=== PATIENT | female | born 1950 | race Caucasian/White ===

== ENCOUNTER 2020-09-15 14:52 | Inpatient (IN) ==
[2020-09-15] MEDS ORDERED: Isovue-370 500 ML BOTTLE IVP ONE (15:07)
[2020-09-15 15:24] LABS: Hematocrit 39.1 % (35.3-44.9); Hemoglobin 12.6 g/dL (11.5-15.4); Mean Corpuscular HGB Conc 32.2 g/dL (31.6-35.5); Mean Corpuscular Hemoglobin 32.6 pg (28.0-33.3); Mean Platelet Volume 9.3 fL (9.4-12.4); Platelet Count 222 K/mcL (140-400); Red Blood Count 3.87 M/mcL (3.82-4.97); Red Cell Distribution Width 13.4 % (11.5-14.5)
[2020-09-15 15:30] LABS: INR 1.1
[2020-09-15 15:36] LABS: Activated Partial Thrombo Time 20.8 Seconds (26.0-36.0)
[2020-09-15 15:42] LABS: Calcium 9.3 mg/dL (8.6-10.3); Potassium 4.1 mEq/L (3.5-5.1)
[2020-09-15 15:47] LABS: Troponin I 0.1 ng/mL (< 0.04)
[2020-09-15] MEDS ORDERED: Aspirin 81 MG TAB.CHEW PO STA (16:55)
[2020-09-15] MEDS ORDERED: Perflutren Lipid Microsphere 1.3 ML in 0.9 % Sodium Chloride 8.7 ML IVP PRN (18:03)
[2020-09-15] MEDS ORDERED: Naloxone 0.4 MG/ML INJ IVP PRN (18:33)
[2020-09-15] MEDS ORDERED: Dextrose Gel 15 GM/37.5 ML TUBE PO PRN ×2 (18:42)
[2020-09-15] MEDS ORDERED: *HR* Dextrose 50 % in Water (Vial) 50 ML VIAL IVP PRN (18:42)
[2020-09-15] MEDS ORDERED: D5% in Water 1,000 ML IVC PRN (18:42)
[2020-09-15] MEDS ORDERED: traZODone 50 MG TABLET PO PRN (20:20)
[2020-09-15] MEDS: Metoprolol XL (24 HR) Succ 50 MG TAB.ER.24H PO SCH (21:57)
[2020-09-15] MEDS: Ranolazine 500 MG TAB.ER.12H PO SCH (21:57)
[2020-09-15] MEDS: Insulin DETEMIR 100 UNIT/ML X5UNITS SQ SCH (21:58)
[2020-09-16] MEDS: Ranolazine 500 MG TAB.ER.12H PO SCH ×2 (08:27→19:54)
[2020-09-16] MEDS: Metoprolol XL (24 HR) Succ 50 MG TAB.ER.24H PO SCH ×2 (08:28→19:55)
[2020-09-16] MEDS: Aspirin Enteric Coated 81 MG Tablet PO SCH (08:28)
[2020-09-16] MEDS: Isosorbide MONOnitrate (24 HR) 60 MG TAB.ER.24H PO SCH (08:28)
[2020-09-16] MEDS: Insulin LISPRO 300 UNITS/3 ML VIAL SQ SCH ×3 (08:28→17:36)
[2020-09-16] MEDS ORDERED: *HR* Heparin 5,000 UNIT/ML VIAL IVP PRN ×2 (08:33)
[2020-09-16 08:52] LABS: Basophils % 0.1 %; Eosinophils # 0.1 K/mcL (0.0-0.6); Eosinophils % 1.5 %; Hematocrit 39.7 % (35.3-44.9); Hemoglobin 12.8 g/dL (11.5-15.4); Immature Granulocytes % 0.5 % (0-4); Lymphocytes # 1.3 K/mcL (0.6-4.6); Lymphocytes % 16.6 %; Mean Corpuscular HGB Conc 32.2 g/dL (31.6-35.5); Mean Corpuscular Hemoglobin 32.8 pg (28.0-33.3); Mean Corpuscular Volume 101.8 fL (83.0-100.0); Mean Platelet Volume 9.2 fL (9.4-12.4); Monocytes % 12.2 %; Neutrophils # 5.4 K/mcL (1.6-8.9); Platelet Count 226 K/mcL (140-400); Red Cell Distribution Width 13.5 % (11.5-14.5); Segmented Neutrophils % 69.1 %; White Blood Count 7.8 K/mcL (4.3-11.1)
[2020-09-16 08:56] LABS: INR 1.1
[2020-09-16 08:57] LABS: Heparin anti-factor XA UFH < 0.04 IU/mL (0.30-0.70)
[2020-09-16 08:59] LABS: Estimated Average Glucose 151 mg/dl
[2020-09-16 09:12] LABS: Calcium 9.7 mg/dL (8.6-10.3); Chol/HDL Ratio 3.8 (0-4.9); Potassium 4.3 mEq/L (3.5-5.1)
[2020-09-16] MEDS: Heparin 25,000UNIT/250ML 1/2NS 25,000 UNIT/250 ML IV.SOLN IVC SCH (09:57)
[2020-09-16] MEDS: Insulin DETEMIR 100 UNIT/ML X5UNITS SQ SCH (19:55)
[2020-09-16 21:56] LABS: Adenovirus Not Detected (Not Detect); Bordetella Pertussis Not Detected (Not Detect); Chlamydophila pneumoniae Not Detected (Not Detect); Coronavirus 229E Not Detected (Not Detect); Coronavirus HKU1 Not Detected (Not Detect); Coronavirus NL63 Not Detected (Not Detect); Coronavirus OC43 Not Detected (Not Detect); Human Metapneumovirus Not Detected (Not Detect); Human Rhinovirus/Enterovirus Not Detected (Not Detect); Influenza A Subtype 2009 H1 Not Detected (Not Detect); Influenza B Not Detected (Not Detect); Mycoplasma pneumoniae Not Detected (Not Detect); Parainfluenza Virus 1 Not Detected (Not Detect); Parainfluenza Virus 2 Not Detected (Not Detect); Parainfluenza Virus 3 Not Detected (Not Detect); Parainfluenza Virus 4 Not Detected (Not Detect); Respiratory Syncytial Virus Not Detected (Not Detect); SARS-CoV-2 Not Detected (Not Detect)
[2020-09-17] MEDS: Heparin 25,000UNIT/250ML 1/2NS 25,000 UNIT/250 ML IV.SOLN IVC SCH ×2 (01:38→18:16)
[2020-09-17 02:17] LABS: Hematocrit 34.9 % (35.3-44.9); Mean Corpuscular HGB Conc 31.2 g/dL (31.6-35.5); Mean Corpuscular Hemoglobin 31.9 pg (28.0-33.3); Mean Platelet Volume 9.8 fL (9.4-12.4); Platelet Count 226 K/mcL (140-400); Red Blood Count 3.42 M/mcL (3.82-4.97); Red Cell Distribution Width 13.2 % (11.5-14.5); White Blood Count 7.8 K/mcL (4.3-11.1)
[2020-09-17 02:18] LABS: Hemoglobin 10.9 g/dL (11.5-15.4)
[2020-09-17 02:39] LABS: Calcium 9.3 mg/dL (8.6-10.3); Potassium 4.2 mEq/L (3.5-5.1)
[2020-09-17] MEDS: Insulin LISPRO 300 UNITS/3 ML VIAL SQ SCH ×3 (07:48→16:43)
[2020-09-17] MEDS: Aspirin Enteric Coated 81 MG Tablet PO SCH (07:48)
[2020-09-17] MEDS: Ranolazine 500 MG TAB.ER.12H PO SCH ×2 (07:49→21:28)
[2020-09-17] MEDS: Isosorbide MONOnitrate (24 HR) 60 MG TAB.ER.24H PO SCH (07:49)
[2020-09-17] MEDS: Metoprolol XL (24 HR) Succ 50 MG TAB.ER.24H PO SCH ×2 (07:49→21:28)
[2020-09-17] MEDS ORDERED: 0.9 % Sodium Chloride 500 ML IVC ONE (09:34)
[2020-09-17] MEDS ORDERED: Lidocaine Viscous Oral Soln 15 ML SOLUTION MM PRN (09:34)
[2020-09-17] MEDS: *HR* Midazolam HCl 5 MG/5 ML VIAL IVP PRN ×2 (10:05→10:10)
[2020-09-17] MEDS: *HR* FentaNYL (PF) 100 MCG/2 ML VIAL IVP PRN ×2 (10:05→10:10)
[2020-09-17] MEDS: Miconazole 2% ointment 141 APPL/141 GM TUBE TP SCH (13:00)
[2020-09-17 14:16] LABS: Hematocrit 38.5 % (35.3-44.9); Hemoglobin 11.9 g/dL (11.5-15.4)
[2020-09-17] MEDS: 0.9 % Sodium Chloride 1,000 ML IVC SCH ×2 (16:41→23:58)
[2020-09-17] MEDS: *HR* Heparin 5,000 UNIT/ML VIAL SQ SCH (18:16)
[2020-09-17] MEDS: Insulin DETEMIR 100 UNIT/ML X5UNITS SQ SCH (21:29)
[2020-09-18] MEDS: *HR* Heparin 5,000 UNIT/ML VIAL SQ SCH ×2 (05:27→16:14)
[2020-09-18 07:33] LABS: Calcium 8.5 mg/dL (8.6-10.3); Potassium 4.5 mEq/L (3.5-5.1)
[2020-09-18 07:35] LABS: Hematocrit 35.5 % (35.3-44.9); Hemoglobin 11.1 g/dL (11.5-15.4); Mean Corpuscular HGB Conc 31.3 g/dL (31.6-35.5); Mean Corpuscular Hemoglobin 32.5 pg (28.0-33.3); Mean Corpuscular Volume 103.8 fL (83.0-100.0); Mean Platelet Volume 9.8 fL (9.4-12.4); Platelet Count 211 K/mcL (140-400); Red Blood Count 3.42 M/mcL (3.82-4.97); Red Cell Distribution Width 13.4 % (11.5-14.5); White Blood Count 5.9 K/mcL (4.3-11.1)
[2020-09-18] MEDS: Isosorbide MONOnitrate (24 HR) 60 MG TAB.ER.24H PO SCH (08:26)
[2020-09-18] MEDS: Aspirin Enteric Coated 81 MG Tablet PO SCH (08:26)
[2020-09-18] MEDS: 0.9 % Sodium Chloride 1,000 ML IVC SCH ×2 (08:26→16:43)
[2020-09-18] MEDS: Ranolazine 500 MG TAB.ER.12H PO SCH ×2 (08:26→21:37)
[2020-09-18] MEDS: Metoprolol XL (24 HR) Succ 50 MG TAB.ER.24H PO SCH ×2 (08:26→21:37)
[2020-09-18] MEDS: Insulin LISPRO 300 UNITS/3 ML VIAL SQ SCH ×3 (08:27→16:14)
[2020-09-18] MEDS: Miconazole 2% ointment 141 APPL/141 GM TUBE TP SCH (08:35)
[2020-09-18] MEDS: Insulin DETEMIR 100 UNIT/ML X5UNITS SQ SCH (21:37)
[2020-09-19] MEDS: *HR* Heparin 5,000 UNIT/ML VIAL SQ SCH (05:34)
[2020-09-19 06:37] LABS: Hematocrit 35.9 % (35.3-44.9); Hemoglobin 11.3 g/dL (11.5-15.4); Mean Corpuscular HGB Conc 31.5 g/dL (31.6-35.5); Mean Corpuscular Hemoglobin 32.1 pg (28.0-33.3); Mean Platelet Volume 9.6 fL (9.4-12.4); Platelet Count 221 K/mcL (140-400); Red Blood Count 3.52 M/mcL (3.82-4.97); Red Cell Distribution Width 13.2 % (11.5-14.5); White Blood Count 5.4 K/mcL (4.3-11.1)
[2020-09-19 06:54] LABS: Calcium 9.4 mg/dL (8.6-10.3); Potassium 4.2 mEq/L (3.5-5.1)
[2020-09-19] MEDS: Insulin LISPRO 300 UNITS/3 ML VIAL SQ SCH ×2 (08:16→12:29)
[2020-09-19] MEDS: Aspirin Enteric Coated 81 MG Tablet PO SCH (08:17)
[2020-09-19] MEDS: Miconazole 2% ointment 141 APPL/141 GM TUBE TP SCH (08:18)
[2020-09-19] MEDS: Ranolazine 500 MG TAB.ER.12H PO SCH (08:18)
[2020-09-19] MEDS: Isosorbide MONOnitrate (24 HR) 60 MG TAB.ER.24H PO SCH (08:19)
[2020-09-19] MEDS: Metoprolol XL (24 HR) Succ 50 MG TAB.ER.24H PO SCH (08:19)
[2020-09-19 12:05] VITALS: BP 115/62
== END 2020-09-19 15:38 | DRG 64 ==
LOC: EMEROOARM 14:52 → 3BNU 14:52 → OBSVTOIN 17:06 → 3BNU 17:42
PROVIDERS: ADMIT Internal Medicine; ATTEND Internal Medicine

== ENCOUNTER 2020-12-06 08:28 | Inpatient (IN) ==
[2020-12-06 09:17] LABS: Basophils % 0.1 %; Eosinophils % 0.1 %; Hematocrit 38.7 % (35.3-44.9); Hemoglobin 12.5 g/dL (11.5-15.4); Immature Granulocytes % 0.4 % (0-4); Lymphocytes # 0.7 K/mcL (0.6-4.6); Lymphocytes % 5.2 %; Mean Corpuscular HGB Conc 32.3 g/dL (31.6-35.5); Mean Corpuscular Hemoglobin 32.5 pg (28.0-33.3); Mean Corpuscular Volume 100.5 fL (83.0-100.0); Mean Platelet Volume 9.6 fL (9.4-12.4); Monocytes # 0.5 K/mcL (0.0-1.3); Monocytes % 3.6 %; Neutrophils # 12.1 K/mcL (1.6-8.9); Platelet Count 217 K/mcL (140-400); Red Blood Count 3.85 M/mcL (3.82-4.97); Red Cell Distribution Width 13.4 % (11.5-14.5); Segmented Neutrophils % 90.6 %; White Blood Count 13.3 K/mcL (4.3-11.1)
[2020-12-06 09:30] LABS: INR 1.2; Prothrombin Time 14.3 Seconds (9.4-12.1)
[2020-12-06 09:39] LABS: Albumin 3.6 g/dL (3.5-5.7); Bilirubin,Total 1.2 mg/dL (0.3-1.0); Calcium 9.5 mg/dL (8.6-10.3); Globulin 3.7 g/dL (2.4-3.5); Potassium 4.4 mEq/L (3.5-5.1); Total Protein 7.3 g/dL (6.4-8.9)
[2020-12-06] MEDS ORDERED: 0.9 % Sodium Chloride 500 ML IVC ONE (09:41)
[2020-12-06 10:15] LABS: Bilirubin,Urine Small (Negative); Blood,Urine Small (Negative); Clarity,Urine Turbid (Clear); Color,Urine Yellow (Yellow); Glucose,Urine (UA) Normal (Normal); Ketones,Urine Trace mg/dL (Negative); Leukocyte Esterase,Urine Large (Negative); Nitrite,Urine Negative (Negative); PH,Urine 5.5 pH Units (5.0-8.0); Protein,Urine 100 mg/dL (Neg-Trace); Specific Gravity,Urine 1.025 (1.010-1.025); Urobilinogen,Urine Normal (Normal)
[2020-12-06 10:23] LABS: WBC,Urine TNTC per hpf (0-3)
[2020-12-06 10:23] LABS: Troponin I 0.08 ng/mL (< 0.04)
[2020-12-06 10:24] LABS: Bacteria,Urine Present per hpf (None-Few); RBC,Urine Present per hpf (0-3); Squamous Epithelial Cell,Urine Present per hpf (None-Few)
[2020-12-06] MEDS ORDERED: *HR* Dextrose 50 % in Water (Vial) 50 ML VIAL IVP ONE (12:11)
[2020-12-06] MEDS ORDERED: D5% in Water 1,000 ML IVC PRN (12:51)
[2020-12-06] MEDS ORDERED: *HR* Dextrose 50 % in Water (Vial) 50 ML VIAL IVP PRN (12:51)
[2020-12-06] MEDS ORDERED: Naloxone 0.4 MG/ML INJ IVP PRN (12:51)
[2020-12-06] MEDS ORDERED: Dextrose Gel 15 GM/37.5 ML TUBE PO PRN ×2 (12:51)
[2020-12-06] MEDS ORDERED: *HR* HYDROcodone/Acet 5/325 mg TABLET PO PRN (12:51)
[2020-12-06] MEDS ORDERED: Nitroglycerin 0.4 MG TAB.SUBL SL PRN (12:58)
[2020-12-06] MEDS: *HR* Heparin 5,000 UNIT/ML VIAL SQ SCH (17:04)
[2020-12-06] MEDS: Insulin LISPRO 300 UNITS/3 ML VIAL SUBQ SCH (17:04)
[2020-12-06] MEDS: Metoprolol XL (24 HR) Succ 50 MG TAB.ER.24H PO SCH (19:36)
[2020-12-06] MEDS: Acetaminophen 325 MG TABLET PO PRN (19:36)
[2020-12-06] MEDS: Ranolazine 500 MG TAB.ER.12H PO SCH (19:37)
[2020-12-06] MEDS ORDERED: Ondansetron 4 MG/2 ML VIAL IVP PRN (20:00)
[2020-12-06] MEDS: Insulin DETEMIR 100 UNIT/ML X5UNITS SUBQ SCH (20:45)
[2020-12-07] MEDS: *HR* Heparin 5,000 UNIT/ML VIAL SQ SCH ×2 (05:43→16:49)
[2020-12-07 06:59] LABS: Basophils % 0.2 %; Eosinophils # 0.1 K/mcL (0.0-0.6); Eosinophils % 0.4 %; Hemoglobin 12.8 g/dL (11.5-15.4); Immature Granulocytes % 0.5 % (0-4); Lymphocytes # 0.9 K/mcL (0.6-4.6); Lymphocytes % 7.5 %; Mean Corpuscular Hemoglobin 32.4 pg (28.0-33.3); Mean Corpuscular Volume 101.3 fL (83.0-100.0); Mean Platelet Volume 9.3 fL (9.4-12.4); Monocytes # 0.9 K/mcL (0.0-1.3); Monocytes % 7.2 %; Neutrophils # 9.9 K/mcL (1.6-8.9); Platelet Count 185 K/mcL (140-400); Red Blood Count 3.95 M/mcL (3.82-4.97); Red Cell Distribution Width 13.6 % (11.5-14.5); Segmented Neutrophils % 84.2 %; White Blood Count 11.8 K/mcL (4.3-11.1)
[2020-12-07 07:19] LABS: Calcium 9.5 mg/dL (8.6-10.3); Potassium 4.7 mEq/L (3.5-5.1)
[2020-12-07 07:23] LABS: Troponin I 0.05 ng/mL (< 0.04)
[2020-12-07] MEDS: Ranolazine 500 MG TAB.ER.12H PO SCH ×2 (08:09→21:15)
[2020-12-07] MEDS: lisinopriL 5 MG TABLET PO SCH (08:09)
[2020-12-07] MEDS: Aspirin Enteric Coated 81 MG Tablet PO SCH (08:09)
[2020-12-07] MEDS: Insulin LISPRO 300 UNITS/3 ML VIAL SUBQ SCH ×3 (08:09→16:49)
[2020-12-07] MEDS: Metoprolol XL (24 HR) Succ 50 MG TAB.ER.24H PO SCH ×2 (08:09→21:14)
[2020-12-07] MEDS: Acetaminophen 325 MG TABLET PO PRN ×2 (08:09→21:38)
[2020-12-07 09:14] LABS: Adenovirus Not Detected (Not Detect); Bordetella Pertussis Not Detected (Not Detect); Chlamydophila pneumoniae Not Detected (Not Detect); Coronavirus 229E Not Detected (Not Detect); Coronavirus HKU1 Not Detected (Not Detect); Coronavirus NL63 Not Detected (Not Detect); Coronavirus OC43 Not Detected (Not Detect); Human Metapneumovirus Not Detected (Not Detect); Human Rhinovirus/Enterovirus Not Detected (Not Detect); Influenza A Subtype 2009 H1 Not Detected (Not Detect); Influenza B Not Detected (Not Detect); Mycoplasma pneumoniae Not Detected (Not Detect); Parainfluenza Virus 1 Not Detected (Not Detect); Parainfluenza Virus 2 Not Detected (Not Detect); Parainfluenza Virus 3 Not Detected (Not Detect); Parainfluenza Virus 4 Not Detected (Not Detect); Respiratory Syncytial Virus Not Detected (Not Detect); SARS-CoV-2 Not Detected (Not Detect)
[2020-12-07] MEDS: Insulin DETEMIR 100 UNIT/ML X5UNITS SUBQ SCH (21:15)
[2020-12-08] MEDS: *HR* Heparin 5,000 UNIT/ML VIAL SQ SCH ×2 (06:20→17:18)
[2020-12-08] MEDS: Insulin LISPRO 300 UNITS/3 ML VIAL SUBQ SCH ×3 (07:16→17:17)
[2020-12-08] MEDS: Aspirin Enteric Coated 81 MG Tablet PO SCH (09:49)
[2020-12-08] MEDS: lisinopriL 5 MG TABLET PO SCH (09:49)
[2020-12-08] MEDS: Metoprolol XL (24 HR) Succ 50 MG TAB.ER.24H PO SCH ×3 (09:49→22:11)
[2020-12-08] MEDS: Ranolazine 500 MG TAB.ER.12H PO SCH ×2 (09:49→22:02)
[2020-12-08] MEDS: Insulin DETEMIR 100 UNIT/ML X5UNITS SUBQ SCH (22:03)
[2020-12-09 04:03] LABS: Basophils % 0.2 %; Eosinophils # 0.1 K/mcL (0.0-0.6); Eosinophils % 1.3 %; Immature Granulocytes % 0.8 % (0-4); Lymphocytes # 1.3 K/mcL (0.6-4.6); Lymphocytes % 14.1 %; Mean Corpuscular HGB Conc 31.8 g/dL (31.6-35.5); Mean Corpuscular Hemoglobin 31.5 pg (28.0-33.3); Mean Corpuscular Volume 99.1 fL (83.0-100.0); Mean Platelet Volume 9.7 fL (9.4-12.4); Monocytes # 1.2 K/mcL (0.0-1.3); Monocytes % 12.6 %; Neutrophils # 6.7 K/mcL (1.6-8.9); Platelet Count 198 K/mcL (140-400); Red Blood Count 3.33 M/mcL (3.82-4.97); Red Cell Distribution Width 13.5 % (11.5-14.5); White Blood Count 9.5 K/mcL (4.3-11.1)
[2020-12-09 04:15] LABS: Potassium 4.3 mEq/L (3.5-5.1)
[2020-12-09 04:16] LABS: Hemoglobin 10.5 g/dL (11.5-15.4)
[2020-12-09] MEDS: Acetaminophen 325 MG TABLET PO PRN (05:20)
[2020-12-09] MEDS: *HR* Heparin 5,000 UNIT/ML VIAL SQ SCH (05:21)
[2020-12-09 07:45] VITALS: BP 147/70
[2020-12-09] MEDS: Aspirin Enteric Coated 81 MG Tablet PO SCH (08:12)
[2020-12-09] MEDS: Ranolazine 500 MG TAB.ER.12H PO SCH (08:12)
[2020-12-09] MEDS: lisinopriL 5 MG TABLET PO SCH (08:13)
[2020-12-09] MEDS: Metoprolol XL (24 HR) Succ 50 MG TAB.ER.24H PO SCH (08:17)
[2020-12-09] MEDS: Insulin LISPRO 300 UNITS/3 ML VIAL SUBQ SCH (08:18)
== END 2020-12-09 11:06 | disposition home or self-care (01) | DRG 638 ==
LOC: EMEROOARM 08:28 → 2ANU 08:28 → SUATTDRO 12:04 → 2ANU 13:03
PROVIDERS: ADMIT Internal Medicine; ATTEND Internal Medicine

== ENCOUNTER 2021-02-12 06:06 | Inpatient (IN) ==
[~2021-02-12 06:06] MED LIST: Ringers Solution, Lactated 1,000 ML IVC SCH
[2021-02-12] MEDS ORDERED: Vancomycin 1,500 MG/265 ML IV.SOLN IVPB ONE (06:38)
[2021-02-12] MEDS ORDERED: Clindamycin 900 MG/50 ML 900 MG/50 ML IV.SOLN IVPB ONE (06:38)
[2021-02-12] MEDS ORDERED: Heparin 1,000 UNITS/500 mL 500 ML ONE ×2 (06:59→07:05)
[2021-02-12] MEDS ORDERED: *HR* Propofol 200 MG/20 ML VIAL IVP ONE (07:02)
[2021-02-12] MEDS ORDERED: *HR* Rocuronium Bromide 50 MG/5 ML VIAL ONE (07:03)
[2021-02-12] MEDS ORDERED: *HR* FentaNYL (PF) 100 MCG/2 ML VIAL ONE (07:03)
[2021-02-12] MEDS ORDERED: Lidocaine -MPF 2% 2 ML VIAL ONE (07:03)
[2021-02-12] MEDS ORDERED: Lidocaine -MPF 2% 5 ML VIAL ONE (07:08)
[2021-02-12] MEDS ORDERED: Vancomycin 1,000 MG, Sodium Chloride IRRigation 1,000 ML IR ONE (07:45)
[2021-02-12] MEDS ORDERED: *HR* HYDROmorphone (PF) 1 MG/ML SYRINGE IVP PRN (08:00)
[2021-02-12] MEDS ORDERED: Acetaminophen IV 1,000 MG/100 ML BAG IVPB PRN (08:00)
[2021-02-12] MEDS ORDERED: Ondansetron 4 MG/2 ML VIAL IVP PRN ×2 (08:00→15:56)
[2021-02-12] MEDS ORDERED: Ondansetron 4 MG/2 ML VIAL ONE (09:00)
[2021-02-12] MEDS ORDERED: Sugammadex Sodium 200 MG/2 ML VIAL IV ONE (09:16)
[2021-02-12] MEDS ORDERED: *HR* Heparin 5,000 UNIT/ML VIAL ONE (09:40)
[2021-02-12] MEDS ORDERED: Protamine Sulfate 50 MG/5 ML VIAL IVP ONE (10:35)
[2021-02-12] MEDS ORDERED: EPHEDrine 50 MG/ML VIAL ONE (10:42)
[2021-02-12] MEDS ORDERED: *HR* Vasopressin 20 UNIT/ML VIAL ONE (10:46)
[2021-02-12] MEDS ORDERED: *HR* Norepinephrine 4 MG/4 ML VIAL IVC ONE (10:46)
[2021-02-12] MEDS ORDERED: Albumin Human 5% 12.5 GM/250 ML IV.SOLN ONE ×2 (10:53→12:12)
[2021-02-12] MEDS ORDERED: *HR* Phenylephrine 10 MG/ML VIAL ONE (12:22)
[2021-02-12 12:23] LABS: ABG Base Excess -5 mEq/L (-2 to 3); ABG Chloride 110 mEq/L (98-107); ABG Glucose 280 mg/dL (60-95); ABG HCO3 20 mEq/L (21-27); ABG Ionized Calcium 1.18 mmol/L (1.15-1.35); ABG Oxygen Saturation 99 % (95-98); ABG PCO2 36 mmHg (35-45); ABG PH 7.36 pH Units (7.32-7.45); ABG PO2 132 mmHg (85-104); ABG TCO2 21 mEq/L (20-26)
[2021-02-12] MEDS ORDERED: Phenylephrine 10 MG in 0.9 % Sodium Chloride 250 ML IVC SCH (12:28)
[2021-02-12 12:30] LABS: Hematocrit 21.7 % (35.3-44.9)
[2021-02-12] MEDS ORDERED: *HR* Dextrose 50 % in Water (Vial) 50 ML VIAL IVP PRN (15:56)
[2021-02-12] MEDS ORDERED: Nitroglycerin 0.4 MG TAB.SUBL SL PRN (15:56)
[2021-02-12] MEDS ORDERED: Dextrose Gel 15 GM/37.5 ML TUBE PO PRN ×2 (15:56)
[2021-02-12] MEDS ORDERED: Naloxone 0.4 MG/ML INJ IVP PRN (15:56)
[2021-02-12] MEDS ORDERED: D5% in Water 1,000 ML IVC PRN (15:56)
[2021-02-12] MEDS ORDERED: *HR* Labetalol 20 MG/4 ML SYRINGE IVP PRN (15:56)
[2021-02-12] MEDS ORDERED: 0.9 % Sodium Chloride 1,000 ML IVC SCH (15:56)
[2021-02-12] MEDS ORDERED: *HR* HYDROcodone/Acet 5/325 mg TABLET PO PRN (15:56)
[2021-02-12] MEDS ORDERED: *HR* OxyCODONE Immed Rel 5 MG TABLET PO PRN (15:56)
[2021-02-12] MEDS: Cholecalciferol (D-3) 1,000 UNIT (25MCG) TABLET PO SCH ×2 (16:39→21:06)
[2021-02-12] MEDS: Insulin LISPRO 300 UNITS/3 ML VIAL SUBQ SCH ×2 (16:39→21:09)
[2021-02-12] MEDS: CeFAZolin 2 GM/120 ML BAG IVPB SCH ×2 (17:00→23:29)
[2021-02-12] MEDS: *HR* Metoprolol 5 MG/5 ML VIAL IVP SCH ×2 (18:03→23:37)
[2021-02-12] MEDS: Metoprolol XL (24 HR) Succ 50 MG TAB.ER.24H PO SCH (20:51)
[2021-02-12] MEDS: Ranolazine 500 MG TAB.ER.12H PO SCH (21:06)
[2021-02-12] MEDS: Acetaminophen 325 MG TABLET PO PRN (23:37)
[2021-02-13 05:25] LABS: Calcium 7.4 mg/dL (8.6-10.3); Potassium 4.9 mEq/L (3.5-5.1)
[2021-02-13] MEDS: *HR* Metoprolol 5 MG/5 ML VIAL IVP SCH (05:37)
[2021-02-13] MEDS: Acetaminophen 325 MG TABLET PO PRN ×2 (05:38→18:16)
[2021-02-13] MEDS: *HR* Heparin 5,000 UNIT/ML VIAL SQ SCH ×2 (05:39→18:16)
[2021-02-13 05:45] LABS: Basophils % 0.1 %; Eosinophils % 0.1 %; Hematocrit 25.7 % (35.3-44.9); Hemoglobin 8.5 g/dL (11.5-15.4); Immature Granulocytes % 0.3 % (0-4); Lymphocytes # 0.8 K/mcL (0.6-4.6); Lymphocytes % 6.9 %; Mean Corpuscular HGB Conc 33.1 g/dL (31.6-35.5); Mean Corpuscular Hemoglobin 32.1 pg (28.0-33.3); Mean Platelet Volume 10.3 fL (9.4-12.4); Monocytes # 0.8 K/mcL (0.0-1.3); Monocytes % 7.1 %; Neutrophils # 9.8 K/mcL (1.6-8.9); Platelet Count 167 K/mcL (140-400); Red Blood Count 2.65 M/mcL (3.82-4.97); Red Cell Distribution Width 17.7 % (11.5-14.5); Segmented Neutrophils % 85.5 %; White Blood Count 11.4 K/mcL (4.3-11.1)
[2021-02-13] MEDS ORDERED: *HR* Heparin 5,000 UNIT/ML VIAL SQ SCH (06:00)
[2021-02-13] MEDS: Metoprolol XL (24 HR) Succ 50 MG TAB.ER.24H PO SCH ×2 (08:14→20:04)
[2021-02-13] MEDS: lisinopriL 5 MG TABLET PO SCH (08:14)
[2021-02-13] MEDS: Insulin LISPRO 300 UNITS/3 ML VIAL SUBQ SCH ×4 (08:15→20:09)
[2021-02-13] MEDS: Ranolazine 500 MG TAB.ER.12H PO SCH ×2 (08:16→20:06)
[2021-02-13] MEDS: *HR* Ticagrelor 90 MG TABLET PO SCH ×2 (08:17→20:07)
[2021-02-13] MEDS: Cholecalciferol (D-3) 1,000 UNIT (25MCG) TABLET PO SCH ×3 (08:17→20:04)
[2021-02-13] MEDS: Aspirin Enteric Coated 81 MG Tablet PO SCH (08:17)
[2021-02-14] MEDS: Acetaminophen 325 MG TABLET PO PRN (05:50)
[2021-02-14] MEDS: *HR* Heparin 5,000 UNIT/ML VIAL SQ SCH ×2 (05:53→17:04)
[2021-02-14] MEDS: Metoprolol XL (24 HR) Succ 50 MG TAB.ER.24H PO SCH ×2 (07:43→20:55)
[2021-02-14] MEDS: lisinopriL 5 MG TABLET PO SCH (07:45)
[2021-02-14] MEDS: Cholecalciferol (D-3) 1,000 UNIT (25MCG) TABLET PO SCH ×3 (07:46→20:55)
[2021-02-14] MEDS: Aspirin Enteric Coated 81 MG Tablet PO SCH (07:46)
[2021-02-14] MEDS: *HR* Ticagrelor 90 MG TABLET PO SCH ×2 (07:48→20:55)
[2021-02-14] MEDS: Ranolazine 500 MG TAB.ER.12H PO SCH ×2 (07:48→20:56)
[2021-02-14] MEDS: Insulin LISPRO 300 UNITS/3 ML VIAL SUBQ SCH ×4 (07:54→20:57)
[2021-02-15] MEDS: *HR* Heparin 5,000 UNIT/ML VIAL SQ SCH ×2 (06:08→17:00)
[2021-02-15] MEDS: Metoprolol XL (24 HR) Succ 50 MG TAB.ER.24H PO SCH ×2 (07:22→21:01)
[2021-02-15] MEDS: *HR* Ticagrelor 90 MG TABLET PO SCH ×2 (07:23→21:01)
[2021-02-15] MEDS: Aspirin Enteric Coated 81 MG Tablet PO SCH (07:23)
[2021-02-15] MEDS: Cholecalciferol (D-3) 1,000 UNIT (25MCG) TABLET PO SCH ×3 (07:23→21:01)
[2021-02-15] MEDS: lisinopriL 5 MG TABLET PO SCH (07:23)
[2021-02-15] MEDS: Insulin LISPRO 300 UNITS/3 ML VIAL SUBQ SCH ×4 (07:24→21:01)
[2021-02-15] MEDS: Ranolazine 500 MG TAB.ER.12H PO SCH ×2 (07:24→21:00)
[2021-02-15] MEDS: Acetaminophen 325 MG TABLET PO PRN (21:04)
[2021-02-16] MEDS: *HR* Heparin 5,000 UNIT/ML VIAL SQ SCH ×2 (06:01→16:33)
[2021-02-16] MEDS: Cholecalciferol (D-3) 1,000 UNIT (25MCG) TABLET PO SCH ×3 (08:09→20:02)
[2021-02-16] MEDS: Ranolazine 500 MG TAB.ER.12H PO SCH ×2 (08:10→20:02)
[2021-02-16] MEDS: Aspirin Enteric Coated 81 MG Tablet PO SCH (08:10)
[2021-02-16] MEDS: lisinopriL 5 MG TABLET PO SCH (08:10)
[2021-02-16] MEDS: *HR* Ticagrelor 90 MG TABLET PO SCH ×2 (08:10→20:02)
[2021-02-16] MEDS: Metoprolol XL (24 HR) Succ 50 MG TAB.ER.24H PO SCH ×2 (08:12→20:02)
[2021-02-16] MEDS: Insulin LISPRO 300 UNITS/3 ML VIAL SUBQ SCH ×4 (08:14→19:13)
[2021-02-16] MEDS: Acetaminophen 325 MG TABLET PO PRN (20:02)
[2021-02-17] MEDS: *HR* Heparin 5,000 UNIT/ML VIAL SQ SCH (05:37)
[2021-02-17] MEDS: lisinopriL 5 MG TABLET PO SCH (08:56)
[2021-02-17] MEDS: Metoprolol XL (24 HR) Succ 50 MG TAB.ER.24H PO SCH (08:56)
[2021-02-17] MEDS: *HR* Ticagrelor 90 MG TABLET PO SCH (08:56)
[2021-02-17] MEDS: Cholecalciferol (D-3) 1,000 UNIT (25MCG) TABLET PO SCH (08:56)
[2021-02-17] MEDS: Ranolazine 500 MG TAB.ER.12H PO SCH (08:56)
[2021-02-17] MEDS: Aspirin Enteric Coated 81 MG Tablet PO SCH (08:56)
[2021-02-17] MEDS: Insulin LISPRO 300 UNITS/3 ML VIAL SUBQ SCH ×2 (08:57→11:54)
[2021-02-17 11:41] VITALS: BP 122/62
[2021-02-17 12:50] LABS: Hematocrit 27.6 % (35.3-44.9); Hemoglobin 8.7 g/dL (11.5-15.4)
[2021-02-17 13:36] LABS: Influenza A PCR Negative (Negative); Influenza B PCR Negative (Negative); Resp. Syncytial Virus PCR Negative (Negative)
[2021-02-17 13:37] LABS: SARS-CoV-2 by PCR (In House) Negative (Negative)
[2021-02-17] MEDS: Acetaminophen 325 MG TABLET PO PRN (14:20)
== END 2021-02-17 15:32 | disposition home or self-care (01) | DRG 253 ==
LOC: SAMDAY 06:06 → ICNU 14:35 → 2NNU 02-13 22:57
PROVIDERS: ADMIT Surgery; ATTEND Surgery

== ENCOUNTER 2021-11-14 15:21 | Observation (INO) ==
[2021-11-14 16:37] LABS: Basophils % 0.2 %; Eosinophils # 0.2 K/mcL (0.0-0.6); Hematocrit 36.2 % (35.3-44.9); Hemoglobin 11.3 g/dL (11.5-15.4); Immature Granulocytes % 0.2 % (0-4); Lymphocytes # 1.1 K/mcL (0.6-4.6); Lymphocytes % 22.8 %; Mean Corpuscular HGB Conc 31.2 g/dL (31.6-35.5); Mean Corpuscular Hemoglobin 31.4 pg (28.0-33.3); Mean Corpuscular Volume 100.6 fL (83.0-100.0); Mean Platelet Volume 8.9 fL (9.4-12.4); Monocytes # 0.7 K/mcL (0.0-1.3); Monocytes % 13.1 %; Platelet Count 228 K/mcL (140-400); Red Cell Distribution Width 14.5 % (11.5-14.5); Segmented Neutrophils % 59.7 %
[2021-11-14 16:47] LABS: INR 1.2; Prothrombin Time 13.3 Seconds (9.4-12.1)
[2021-11-14 16:49] LABS: Activated Partial Thrombo Time 27.3 Seconds (26.0-36.0)
[2021-11-14 17:20] LABS: Alanine Aminotransferase 16 Units/L (7-52); Albumin 3.6 g/dL (3.5-5.7); Albumin/Globulin Ratio 0.9 (1.1-2.2); Alkaline Phosphatase 51 Units/L (34-104); Aspartate Amino Transferase 32 Units/L (13-39); BUN/Creatinine Ratio 16 (6-26); Bilirubin,Direct 0.1 mg/dL (0.0-0.2); Bilirubin,Indirect 0.5 mg/dL (0.0-1.0); Bilirubin,Total 0.6 mg/dL (0.3-1.0); Blood Urea Nitrogen 20 mg/dL (8-23); Calcium 9.8 mg/dL (8.6-10.3); Carbon Dioxide 24 mEq/L (23-29); Chloride 105 mEq/L (98-107); Creatine Kinase 48 Units/L (30-223); Ethanol < 10 mg/dL (Less than 10); Globulin 3.9 g/dL (2.4-3.5); Glucose 229 mg/dL (70-105); Osmolality,Calculated 296 (280-300); Potassium 4.4 mEq/L (3.5-5.1); Sodium 138 mEq/L (136-145); Thyroid Stimulating Hormone 2.747 mcIU/mL (0.340-5.600); Total Protein 7.5 g/dL (6.4-8.9); Troponin I < 0.03 ng/mL (< 0.04); eGFR For African Americans 50 (> 60); eGFR For Non-African Americans 41 (> 60)
[2021-11-14 17:25] LABS: Bilirubin,Urine Negative (Negative); Blood,Urine Negative (Negative); Clarity,Urine Clear (Clear); Color,Urine Light-Yellow (Yellow); Glucose,Urine (UA) 300 mg/dL (Normal); Ketones,Urine Negative (Negative); Leukocyte Esterase,Urine Trace (Negative); Nitrite,Urine Negative (Negative); PH,Urine 5.5 pH Units (5.0-8.0); Protein,Urine 50 mg/dL (Neg-Trace); RBC,Urine 0-3 per hpf (0-3); Specific Gravity,Urine 1.015 (1.010-1.025); Squamous Epithelial Cell,Urine Few per hpf (None-Few); Urobilinogen,Urine Normal (Normal)
[2021-11-14 17:26] LABS: Amphetamine Screen,Urine Negative ng/mL (Cutoff=1000); Barbiturate Screen,Urine Negative ng/mL (Cutoff=200); Benzodiazepines Screen,Urine Negative ng/mL (Cutoff=200); Cannabinoid Screen,Urine Negative ng/mL (Cutoff = 50); Cocaine Screen,Urine Negative ng/mL (Cutoff= 300); Opiate Screen,Urine Negative ng/mL (Cutoff=300); Phencyclidine Screen,Urine Negative ng/mL (Cutoff=25)
[2021-11-14] MEDS ORDERED: Ertapenem 1,000 MG in 0.9 % Sodium Chloride Mini Bag 100 ML IVPB ONE (17:40)
[2021-11-14] MEDS ORDERED: Ondansetron 4 MG/2 ML VIAL IVP PRN (18:42)
[2021-11-14] MEDS ORDERED: Naloxone 0.4 MG/ML INJ IVP PRN (18:42)
[2021-11-14] MEDS ORDERED: *HR* Dextrose 50 % in Water (Syg) 50 ML SYRINGE IVP PRN (18:43)
[2021-11-14] MEDS ORDERED: Dextrose Gel 15 GM/37.5 ML TUBE PO PRN ×2 (18:43)
[2021-11-14] MEDS ORDERED: D5% in Water 1,000 ML IVC PRN (18:43)
[2021-11-14] MEDS: Insulin LISPRO 300 UNITS/3 ML VIAL SUBQ SCH (22:20)
[2021-11-14 22:23] LABS: Influenza A PCR Negative (Negative); Influenza B PCR Negative (Negative); Resp. Syncytial Virus PCR Negative (Negative)
[2021-11-14 22:24] LABS: SARS-CoV-2 by PCR (In House) Negative (Negative)
[2021-11-15 01:13] LABS: Basophils % 0.2 %; Eosinophils # 0.2 K/mcL (0.0-0.6); Eosinophils % 4.2 %; Hematocrit 34.8 % (35.3-44.9); Hemoglobin 10.8 g/dL (11.5-15.4); Immature Granulocytes % 0.2 % (0-4); Lymphocytes # 1.1 K/mcL (0.6-4.6); Lymphocytes % 24.1 %; Mean Corpuscular Hemoglobin 30.7 pg (28.0-33.3); Mean Corpuscular Volume 98.9 fL (83.0-100.0); Mean Platelet Volume 8.7 fL (9.4-12.4); Monocytes # 0.6 K/mcL (0.0-1.3); Monocytes % 13.8 %; Neutrophils # 2.6 K/mcL (1.6-8.9); Platelet Count 226 K/mcL (140-400); Red Blood Count 3.52 M/mcL (3.82-4.97); Red Cell Distribution Width 14.5 % (11.5-14.5); Segmented Neutrophils % 57.5 %; White Blood Count 4.5 K/mcL (4.3-11.1)
[2021-11-15 01:36] LABS: Calcium 9.6 mg/dL (8.6-10.3); Potassium 3.5 mEq/L (3.5-5.1)
[2021-11-15] MEDS: Insulin LISPRO 300 UNITS/3 ML VIAL SUBQ SCH ×4 (09:48→21:16)
[2021-11-15] MEDS: Ertapenem 1,000 MG in 0.9 % Sodium Chloride Mini Bag 100 ML IVPB SCH (09:48)
[2021-11-15] MEDS ORDERED: Vancomycin 1,250 MG/262.5 ML IV.SOLN IVPB SCH (10:00)
[2021-11-16 05:39] LABS: Basophils % 0.2 %; Eosinophils # 0.2 K/mcL (0.0-0.6); Eosinophils % 3.5 %; Hematocrit 36.8 % (35.3-44.9); Hemoglobin 11.3 g/dL (11.5-15.4); Immature Granulocytes % 0.2 % (0-4); Lymphocytes # 1.2 K/mcL (0.6-4.6); Lymphocytes % 27.3 %; Mean Corpuscular HGB Conc 30.7 g/dL (31.6-35.5); Mean Corpuscular Hemoglobin 30.2 pg (28.0-33.3); Mean Corpuscular Volume 98.4 fL (83.0-100.0); Mean Platelet Volume 8.6 fL (9.4-12.4); Monocytes # 0.7 K/mcL (0.0-1.3); Monocytes % 16.2 %; Neutrophils # 2.3 K/mcL (1.6-8.9); Platelet Count 222 K/mcL (140-400); Red Blood Count 3.74 M/mcL (3.82-4.97); Red Cell Distribution Width 14.2 % (11.5-14.5); Segmented Neutrophils % 52.6 %; White Blood Count 4.3 K/mcL (4.3-11.1)
[2021-11-16 05:59] LABS: Calcium 10.2 mg/dL (8.6-10.3); Potassium 3.8 mEq/L (3.5-5.1)
[2021-11-16] MEDS ORDERED: Ascorbic Acid 500 MG TABLET PO SCH (09:00)
[2021-11-16] MEDS ORDERED: Cholecalciferol (D-3) 1,000 UNIT (25MCG) TABLET PO SCH (09:00)
[2021-11-16] MEDS ORDERED: Apixaban 5 MG TABLET PO SCH (09:00)
[2021-11-16] MEDS ORDERED: Levothyroxine 25 MCG TABLET PO SCH (09:00)
[2021-11-16] MEDS ORDERED: Aspirin Enteric Coated 81 MG Tablet PO SCH (09:00)
[2021-11-16] MEDS: Ertapenem 1,000 MG in 0.9 % Sodium Chloride Mini Bag 100 ML IVPB SCH (09:01)
[2021-11-16] MEDS: Insulin LISPRO 300 UNITS/3 ML VIAL SUBQ SCH ×3 (09:03→17:05)
[2021-11-16 16:14] VITALS: BP 132/66; PULSE 98; TEMP 97.9; O2SAT 98
[2021-11-16] MEDS ORDERED: Mirtazapine 15 MG TABLET PO SCH (21:00)
== END 2021-11-16 17:49 | disposition home health service (06) ==
LOC: EMEROOARM 15:21 → 3ANU 15:21 → SUATTDRO 18:32 → 3ANU 19:46
PROVIDERS: ADMIT Student in an Organized Health Care Education/Training Program; ATTEND Family Medicine

== ENCOUNTER 2021-12-17 09:21 | Inpatient (IN) ==
[~2021-12-17 09:21] MED LIST changes: -Ringers Solution, Lactated 1,000 ML IVC SCH; +Vancomycin 1,000 MG, Sodium Chloride IRRigation 1,000 ML IR ONE
[2021-12-17] MEDS ORDERED: Lidocaine HCL 4 ML Topical Solution (Laryng-O-Jet Kit Sterile Pak) TP ONE (09:41)
[2021-12-17] MEDS ORDERED: Lidocaine -MPF 2% 5 ML VIAL ONE ×2 (09:41→14:54)
[2021-12-17] MEDS ORDERED: Ondansetron 4 MG/2 ML VIAL ONE (09:41)
[2021-12-17] MEDS ORDERED: *HR* Rocuronium Bromide 50 MG/5 ML VIAL ONE (09:41)
[2021-12-17] MEDS ORDERED: *HR* Propofol 200 MG/20 ML VIAL IVP ONE (09:42)
[2021-12-17] MEDS ORDERED: *HR* FentaNYL (PF) 100 MCG/2 ML VIAL ONE (09:42)
[2021-12-17] MEDS ORDERED: Ringers Solution, Lactated 1,000 ML IVC SCH (10:00)
[2021-12-17] MEDS ORDERED: CeFAZolin Syr 2,000MG/20 ML 2,000 MG/20 ML SYRINGE IVPB ONE (10:00)
[2021-12-17] MEDS ORDERED: Heparin 1,000 UNITS/500 mL 500 ML ONE (10:16)
[2021-12-17] MEDS ORDERED: Bupivacaine-MPF 0.25% 10 ML VIAL ONE (10:16)
[2021-12-17] MEDS ORDERED: *HR* HYDROcodone/Acet 5/325 mg TABLET PO PRN ×2 (10:31→17:33)
[2021-12-17] MEDS ORDERED: Ondansetron 4 MG/2 ML VIAL IVP PRN ×2 (10:31→17:33)
[2021-12-17] MEDS ORDERED: Vancomycin 1,000 MG, Sodium Chloride IRRigation 1,000 ML IR ONE (10:40)
[2021-12-17] MEDS ORDERED: Clindamycin 900 MG/50 ML 900 MG/50 ML IV.SOLN IVPB ONE (10:46)
[2021-12-17] MEDS ORDERED: Acetaminophen IV 1,000 MG/100 ML BAG IVPB ONE (11:44)
[2021-12-17] MEDS ORDERED: Sugammadex Sodium 200 MG/2 ML VIAL IV ONE (14:51)
[2021-12-17] MEDS ORDERED: *HR* Phenylephrine 10 MG/ML VIAL ONE (15:26)
[2021-12-17] MEDS ORDERED: Protamine Sulfate 50 MG/5 ML VIAL IVP ONE (16:38)
[2021-12-17] MEDS: *HR* HYDROmorphone PF 0.5 MG/0.5 ML SYRINGE IVP PRN ×2 (16:38→16:56)
[2021-12-17] MEDS ORDERED: D5% in Water 1,000 ML IVC PRN (17:33)
[2021-12-17] MEDS ORDERED: Ipratropium/Albuterol Neb 3 ML IH PRN (17:33)
[2021-12-17] MEDS ORDERED: *HR* OxyCODONE Immed Rel 5 MG TABLET PO PRN (17:33)
[2021-12-17] MEDS ORDERED: *HR* Dextrose 50 % in Water (Syg) 50 ML SYRINGE IVP PRN (17:33)
[2021-12-17] MEDS ORDERED: Dextrose Gel 15 GM/37.5 ML TUBE PO PRN ×2 (17:33)
[2021-12-17] MEDS ORDERED: 0.9 % Sodium Chloride 1,000 ML IVC SCH (17:33)
[2021-12-17] MEDS ORDERED: Naloxone 0.4 MG/ML INJ IVP PRN (17:33)
[2021-12-17] MEDS ORDERED: Acetaminophen 325 MG TABLET PO PRN ×2 (17:33)
[2021-12-17] MEDS ORDERED: *HR* Labetalol 20 MG/4 ML SYRINGE IVP PRN (17:33)
[2021-12-17] MEDS: *HR* Metoprolol 5 MG/5 ML VIAL IVP SCH ×2 (18:40→23:14)
[2021-12-17] MEDS ORDERED: Mirtazapine 15 MG TABLET PO SCH (21:00)
[2021-12-17] MEDS ORDERED: Insulin LISPRO 300 UNITS/3 ML VIAL SUBQ SCH (21:00)
[2021-12-18 03:09] LABS: Calcium 8.8 mg/dL (8.6-10.3); Potassium 4.9 mEq/L (3.5-5.1)
[2021-12-18 03:13] LABS: Basophils % 0.1 %; Eosinophils % 0.1 %; Hematocrit 29.1 % (35.3-44.9); Immature Granulocytes % 0.4 % (0-4); Lymphocytes # 0.6 K/mcL (0.6-4.6); Lymphocytes % 7.2 %; Mean Corpuscular HGB Conc 30.9 g/dL (31.6-35.5); Mean Corpuscular Hemoglobin 30.8 pg (28.0-33.3); Mean Corpuscular Volume 99.7 fL (83.0-100.0); Mean Platelet Volume 9.4 fL (9.4-12.4); Monocytes # 0.7 K/mcL (0.0-1.3); Monocytes % 8.3 %; Neutrophils # 6.9 K/mcL (1.6-8.9); Platelet Count 159 K/mcL (140-400); Red Blood Count 2.92 M/mcL (3.82-4.97); Segmented Neutrophils % 83.9 %; White Blood Count 8.2 K/mcL (4.3-11.1)
[2021-12-18] MEDS: *HR* Heparin 5,000 UNIT/ML VIAL SQ SCH ×2 (05:49→17:46)
[2021-12-18] MEDS: *HR* Metoprolol 5 MG/5 ML VIAL IVP SCH ×2 (05:49→12:46)
[2021-12-18] MEDS ORDERED: *HR* Heparin 5,000 UNIT/ML VIAL SQ SCH (06:00)
[2021-12-18] MEDS: Insulin LISPRO 300 UNITS/3 ML VIAL SUBQ SCH ×2 (08:21→12:32)
[2021-12-18] MEDS ORDERED: Levothyroxine 25 MCG TABLET PO SCH (09:00)
[2021-12-18] MEDS ORDERED: Aspirin Enteric Coated 81 MG Tablet PO SCH (09:00)
[2021-12-18] MEDS ORDERED: Multivit/Ca/Min/Fe/FA 1 TAB TABLET PO SCH (09:00)
[2021-12-18 13:29] VITALS: PULSE 100; O2SAT 98
[2021-12-18 19:41] VITALS: BP 128/40
[2021-12-19 08:32] VITALS: TEMP 99
== END 2021-12-18 18:55 | disposition home or self-care (01) | DRG 253 ==
LOC: SAMDAY 09:21 → 2NNU 17:51
PROVIDERS: ADMIT Surgery; ATTEND Surgery